=== PATIENT | female | born 1945 | race Caucasian/White ===

== ENCOUNTER 2021-03-05 12:53 | Emergency (ER) | payer MEDICARE, BC ==
[~2021-03-05] VITALS: Ht 152.4 cm; Wt 52.2 kg
[2021-03-05] MEDS ORDERED: ACETAMINOPHEN ES 500 MG TABLET ONE (13:29)
[2021-03-05] MEDS ORDERED: TDAP DIPH,PERTUSS,TET VAC/PF 0.5 ML DISP.SYRIN IM ONE ×2 (13:29→13:30)
[2021-03-05] MEDS ORDERED: ACETAMINOPHEN ES 500 MG TABLET PO ONE (13:30)
[2021-03-05] MEDS ORDERED: CEPH500C2 PO (14:16)
--- NOTE | 2021-03-05 14:22 | NUR ---
Patient discharged to home in stable condition. Written and verbal after care instructions given. Patient verbalizes understanding of instructions. Stressed follow up or return to ER for worsening s/s.
== END 2021-03-05 14:32 | disposition home or self-care (01) ==
LOC: ER 12:53
DX: S62.662A Nondisplaced fracture of distal phalanx of right middle finger, initial encounter for closed fracture (principal); S61.312A Laceration without foreign body of right middle finger with damage to nail, initial encounter; W23.0XXA Caught, crushed, jammed, or pinched between moving objects, initial encounter; Y92.89 Other specified places as the place of occurrence of the external cause; E03.9 Hypothyroidism, unspecified; E78.5 Hyperlipidemia, unspecified
CPT/HCPCS: 73140; 90715; A4217; A4663; A9150